=== PATIENT | male | born 1945 | race Two or more races ===

== ENCOUNTER 2016-09-07 18:57 | Observation (INO) | payer MEDICAID, MEDICARE, OTHER ==
[~2016-09-07] VITALS: Ht 177.8 cm; Wt 94.4 kg
[2016-09-07] MEDS ORDERED: METF10002 PO (19:14)
[2016-09-07] MEDS ORDERED: HYDR1TAB12 PO (19:14)
[2016-09-07] MEDS ORDERED: PREG25CA PO (19:14)
[2016-09-07] MEDS ORDERED: ONDANSETRON 2MG/ML, 2ML ONE (19:43)
[2016-09-07] MEDS ORDERED: ONDANSETRON 2MG/ML, 2ML IVPush ONE (20:00)
[2016-09-07] MEDS ORDERED: SODIUM CHLORIDE 0.9% 1,000ML IVBOLUS ONE (20:00)
[2016-09-07 20:06] LABS: ASPARTATE AMINO TRANSFERASE 120 U/L (15-37); BLOOD UREA NITROGEN 8 mg/dL (7-18)
[2016-09-07] MEDS ORDERED: morphine SULFATE 10 MG/ML, 1ML IVPush ONE (20:30)
[2016-09-07] MEDS ORDERED: MORPHINE SULFATE 4 MG/ML, 1ML ONE (20:34)
[2016-09-07] MEDS ORDERED: INSULIN REGULAR 100 UNITS/ML, 3ML VIAL SQ-INSULIN ONE (21:30)
[2016-09-07] MEDS ORDERED: INSULIN REGULAR 100 UNITS/ML, 3ML VIAL ONE (21:38)
[2016-09-07] MEDS ORDERED: GABAPENTIN 300 MG CAPSULE PO ONE (22:00)
[2016-09-07 23:48] VITALS: BP 153/76
[2016-09-08] MEDS ORDERED: HYDROcodone/APAP 5/325 TABLET PO ONE (01:00)
[2016-09-08] MEDS ORDERED: SODIUM CHLORIDE 0.9% 1,000 ML IV SCH (02:02)
[2016-09-08 03:27] LABS: IS PT STATUS REG ER OR PRE ER? NO
[2016-09-08] MEDS: INSULIN ASPART 100 UNITS/ML, PEN SQ-INSULIN SCH ×2 (07:00→11:00)
[2016-09-08 07:55] LABS: IS PT STATUS REG ER OR PRE ER? NO
[2016-09-08 08:18] VITALS: BP 137/66
[2016-09-08 09:33] LABS: HEPATITIS C VIRUS ANTIBODY Nonreactive (Nonreactive)
[2016-09-08] MEDS ORDERED: OXYcodone IR 5MG TABLET PO PRN (11:30)
[2016-09-08] MEDS ORDERED: REGADENOSON 0.4 MG/5 ML SYRINGE ONE (12:29)
[2016-09-08 14:16] VITALS: BP 160/72
[2016-09-08] MEDS ORDERED: TRAM50TA2 PO (16:03)
[2016-09-08] MEDS ORDERED: GLIM1TAB PO (16:06)
[2016-09-08] MEDS ORDERED: TEMAZEPAM 30 MG CAPSULE PO PRN (16:30)
[2016-09-08] MEDS: GABAPENTIN 300 MG CAPSULE PO SCH ×2 (17:51→23:56)
[2016-09-08] MEDS: GLIMEPIRIDE 1 MG TABLET PO SCH (18:30)
[2016-09-08] MEDS ORDERED: ENOXAPARIN 40 MG/0.4 ML SQ SCH (19:00)
[2016-09-08 19:42] VITALS: BP 156/73
[2016-09-08] MEDS: GABAPENTIN 300 MG CAPSULE PO PRN (20:09)
[2016-09-09 02:16] VITALS: BP 149/74
[2016-09-09 06:12] LABS: ASPARTATE AMINO TRANSFERASE 178 U/L (15-37); BLOOD UREA NITROGEN 11 mg/dL (7-18)
[2016-09-09] MEDS: GABAPENTIN 300 MG CAPSULE PO PRN (06:14)
[2016-09-09] MEDS ORDERED: LISI-167 PO (07:43)
[2016-09-09] MEDS ORDERED: GLIMEPIRIDE 1 MG TABLET PO SCH (09:00)
[2016-09-09] MEDS ORDERED: LISINOPRIL 10 MG TABLET PO SCH (09:00)
[2016-09-09] MEDS ORDERED: GABA100C8 PO (09:27)
[2016-09-09] MEDS ORDERED: ALPR-475 PO (09:27)
[2016-09-09] MEDS: GABAPENTIN 300 MG CAPSULE PO SCH (09:46)
[2016-09-09] MEDS: GLIMEPIRIDE 1 MG TABLET PO SCH (09:46)
[2016-09-09 09:48] VITALS: BP 149/71
== END 2016-09-09 14:42 | disposition home or self-care (01) ==
LOC: ED 23:24 → EDIP 23:43 → INTOOBSV 23:43 → 3NW 23:52 → 5SO 09-08 06:22
PROVIDERS: ADMIT Internal Medicine; ATTEND Internal Medicine
DX: R07.89 Other chest pain (principal); R50.9 Fever, unspecified; M79.7 Fibromyalgia; R74.0 Nonspecific elevation of levels of transaminase and lactic acid dehydrogenase [LDH]; I10 Essential (primary) hypertension; N40.0 Benign prostatic hyperplasia without lower urinary tract symptoms; G89.29 Other chronic pain; E11.65 Type 2 diabetes mellitus with hyperglycemia; K76.0 Fatty (change of) liver, not elsewhere classified; F11.23 Opioid dependence with withdrawal; F17.210 Nicotine dependence, cigarettes, uncomplicated; Z72.0 Tobacco use; Z87.01 Personal history of pneumonia (recurrent)
CPT/HCPCS: 36415; 71010; 76700; 78452; 80053; 80061; 80074; 80307; 81003; 82947; 82962; 83036; 83690; 84484; 85025; 87040; 93005; 93017; 96361; 96372; 96374; 96375; 99285; A9502; C9898; G0378; J1650; J2270; J2405; J2785; J7030

== ENCOUNTER 2016-09-10 22:26 | Emergency (ER) | payer OTHER, MEDICAID ==
[~2016-09-10] VITALS: Ht 172.7 cm; Wt 88.6 kg
[~2016-09-10 22:26] MED LIST: ALPR-475 PO; GABA100C8 PO; GLIM1TAB PO; HYDR1TAB12 PO; LISI-167 PO; METF10002 PO; PREG25CA PO; TRAM50TA2 PO
[2016-09-10] MEDS ORDERED: HYDROmorphone 1 MG/ML, 1ML ONE (23:41)
[2016-09-10] MEDS ORDERED: ONDANSETRON 2MG/ML, 2ML ONE (23:42)
[2016-09-11] MEDS ORDERED: ONDANSETRON 2MG/ML, 2ML IVPush ONE
[2016-09-11] MEDS ORDERED: SODIUM CHLORIDE 0.9% 1,000ML IVBOLUS ONE
[2016-09-11] MEDS ORDERED: HYDROmorphone 1 MG/ML, 1ML IVPush PRN
[2016-09-11] MEDS ORDERED: KETOROLAC 30 MG/1 ML ONE (00:20)
[2016-09-11 00:25] LABS: RAPID INFLUENZA A Negative (Negative); RAPID INFLUENZA B Negative (Negative)
[2016-09-11] MEDS ORDERED: KETOROLAC 60 MG/2 ML IVPush ONE (00:30)
[2016-09-11 00:33] LABS: ASPARTATE AMINO TRANSFERASE 81 U/L (15-37); BLOOD UREA NITROGEN 8 mg/dL (7-18)
[2016-09-11] MEDS ORDERED: LEVOFLOXACIN/PMX 750MG/150ML 150 ML IV ONE (01:00)
[2016-09-11] MEDS ORDERED: LEVOFLOXACIN/PMX 750MG/150ML 150 ML ONE (01:46)
[2016-09-11 03:50] VITALS: BP 126/68
== END 2016-09-11 03:56 | disposition short-term general hospital (02) ==
LOC: ED 23:59
DX: R51 Headache (principal); R53.1 Weakness; R53.83 Other fatigue; E11.9 Type 2 diabetes mellitus without complications; I10 Essential (primary) hypertension; F17.210 Nicotine dependence, cigarettes, uncomplicated
CPT/HCPCS: 36415; 70450; 71010; 80053; 81001; 82010; 82550; 83605; 83930; 84145; 85025; 87040; 87086; 87400; 96361; 96365; 96366; 96375; 99285; J1170; J1885; J1956; J2405; J7030

== ENCOUNTER 2020-01-15 11:20 | Day surgery (SDC) | payer MEDICARE, MEDICAID ==
[~2020-01-15] VITALS: Ht 172.7 cm; Wt 92.9 kg
[~2020-01-15 11:20] MED LIST changes: -ALPR-475 PO; +ALPR0.5T7 PO; +CEFAZOLIN 1,000 MG ONE; +GABA-826 PO; -GABA100C8 PO; -HYDR1TAB12 PO; +HYDR1TAB13 PO; +ONDANSETRON 2MG/ML, 2ML ONE; +PROPOFOL 10 MG/ML, 20ML ONE; +ROCURONIUM 10MG/ML,5ML ONE; +SUCCINYLCHOLINE 20 MG/ML, 10ML ONE
[2020-01-15 11:45] VITALS: BP 174/87
[2020-01-15] MEDS: LACTATED RINGERS 1,000 ML IV SCH ×2 (11:59→12:04)
[2020-01-15] MEDS ORDERED: CHLORHEXIDINE 15 ML UDC MM ONE (12:00)
[2020-01-15] MEDS ORDERED: LISI10TA2 PO (12:15)
[2020-01-15] MEDS ORDERED: HYDR-3245 PO (12:15)
[2020-01-15] MEDS ORDERED: AMLO10TA8 PO (12:15)
[2020-01-15] MEDS ORDERED: METF10007 PO (12:15)
[2020-01-15] MEDS ORDERED: PREG150C44 PO (12:15)
[2020-01-15] MEDS ORDERED: FENTANYL PF 250 MCG/5ML ONE (13:23)
[2020-01-15] MEDS ORDERED: MIDAZOLAM 1 MG/ML, 2ML ONE (13:23)
[2020-01-15] MEDS ORDERED: GEMCITABINE HCL 2,000 MG in SODIUM CHLORIDE 0.9% 100 ML IV ONE (13:30)
[2020-01-15] MEDS ORDERED: GEMCITABINE HCL 2,000 MG in SODIUM CHLORIDE 0.9% 47.4 ML IV ONE (13:30)
[2020-01-15] MEDS ORDERED: ONDANSETRON 2MG/ML, 2ML IVPush PRN (14:00)
[2020-01-15] MEDS ORDERED: HYDROmorphone 1 MG/ML, 1ML INJ IV PRN (14:00)
[2020-01-15] MEDS ORDERED: MEPERIDINE/PF 25MG/0.5ML IVPush PRN (14:00)
[2020-01-15] MEDS ORDERED: hydrALAzine 20 MG/ML, 1ML IV PRN (14:00)
[2020-01-15] MEDS ORDERED: KETOROLAC 30 MG/1 ML IV PRN (14:00)
[2020-01-15] MEDS ORDERED: LABETALOL 5MG/ML, 20ML IV PRN (14:00)
[2020-01-15] MEDS ORDERED: ALBUTEROL SULFATE 2.5 MG/3 ML NPPB PRN (14:00)
[2020-01-15] MEDS ORDERED: OXYcodone 5 MG/5 ML ORAL.SOL UDC PO PRN (14:00)
[2020-01-15] MEDS ORDERED: PROMETHAZINE 25 MG/ML, 1ML IV PRN (14:00)
[2020-01-15] MEDS ORDERED: DIAZEPAM 5 MG/ML, 2ML IV PRN ×2 (14:00)
[2020-01-15] MEDS ORDERED: METOCLOPRAMIDE 5 MG/ML, 2ML IV PRN (14:00)
[2020-01-15] MEDS ORDERED: OPIUM/BELLADONNA SUPP.RECT 16.2-60 MG ONE (14:15)
[2020-01-15] MEDS ORDERED: OXYcodone 5 MG/5 ML ORAL.SOL UDC ONE (15:25)
[2020-01-15] MEDS ORDERED: FENTANYL PF 100 MCG/2ML ONE ×2 (15:25→15:45)
[2020-01-15] MEDS: FENTANYL PF 100 MCG/2ML IV PRN ×4 (15:33→15:53)
[2020-01-15] MEDS ORDERED: MEPERIDINE/PF 25MG/ML,1ML ONE (15:36)
[2020-01-15] MEDS ORDERED: HYDROmorphone 1 MG/ML, 1ML INJ ONE (16:02)
[2020-01-15] MEDS ORDERED: DIAZEPAM 5 MG/ML, 2ML ONE (16:02)
[2020-01-15] MEDS ORDERED: KETOROLAC 30 MG/1 ML ONE (16:43)
== END 2020-01-15 19:05 | disposition home or self-care (01) ==
LOC: OUT 11:20
PROVIDERS: ATTEND Student in an Organized Health Care Education/Training Program
DX: D49.4 Neoplasm of unspecified behavior of bladder (principal); Z20.828 Contact with and (suspected) exposure to other viral communicable diseases; C67.9 Malignant neoplasm of bladder, unspecified; R31.0 Gross hematuria; N40.0 Benign prostatic hyperplasia without lower urinary tract symptoms; I10 Essential (primary) hypertension; E11.9 Type 2 diabetes mellitus without complications; Z79.899 Other long term (current) drug therapy
CPT/HCPCS: 36415; 52240; 82962; 87635; 88307; 93005; J0330; J0690; J1170; J1885; J2175; J2250; J2405; J2704; J3010; J3360; J7120